=== PATIENT | male | born 1980 | race Two or more races ===

== ENCOUNTER 2019-02-27 22:25 | Inpatient (IN) | payer BC, MEDICARE ==
[~2019-02-27] VITALS: Ht 172.7 cm; Wt 115.2 kg
[2019-02-27] MEDS ORDERED: ADDE10 PO (22:47)
[2019-02-27] MEDS ORDERED: PREG75 PO (22:47)
[2019-02-27] MEDS ORDERED: ALPR0.5T8 PO (22:47)
[2019-02-27] MEDS ORDERED: BUSP10TA23 PO (22:47)
[2019-02-27] MEDS ORDERED: BUPR-93 PO (22:48)
[2019-02-27 22:53] LABS: BASOPHILS % (AUTO) 0.8 % (0.0-2.0); EOSINOPHILS % (AUTO) 1.7 % (1.0-6.0); HEMATOCRIT 46.2 % (41-53); HEMOGLOBIN 15.5 g/dL (13.5-17.5); LYMPHOCYTES # (AUTO) 2.3 K/uL (1.0-4.8); LYMPHOCYTES % (AUTO) 23.7 % (22.0-44.0); MEAN CORPUSCULAR HEMOGLOBIN 32.8 pg (26.0-34.0); MEAN CORPUSCULAR HGB CONC 33.5 G/dL (31.0-37.0); MEAN CORPUSCULAR VOLUME 98 fL (80-100); MONOCYTES # (AUTO) 0.7 K/uL (0.1-1.0); MONOCYTES % (AUTO) 7.1 % (2.0-9.0); NEUTROPHILS # (AUTO) 6.5 K/uL (1.8-7.7); NEUTROPHILS % (AUTO) 66.7 % (40.0-70.0); PLATELET COUNT (AUTO) 341 K/uL (150-450); RED BLOOD CELL COUNT(AUTO) 4.73 MIL/uL (4.50-5.90)
[2019-02-27 23:02] LABS: ANION GAP 12 mmol/L (8-16); CALCIUM, TOTAL 8.5 mg/dL (8.8-10.5); CARBON DIOXIDE 28 mmol/L (22-29); CHLORIDE 108 mmol/L (98-107); CREATININE 1.09 mg/dL (0.60-1.30); GLOMERULAR FILTR. RATE CALC > 60 mL/min (>60); GLUCOSE,RANDOM 94 mg/dL (70-110); POTASSIUM 4.2 mmol/L (3.5-5.1); SODIUM SERUM 148 mmol/L (136-145); UREA NITROGEN, BLOOD 23 mg/dL (7-18)
[2019-02-27 23:09] LABS: ALANINE AMINOTRANSFERASE 59 U/L (12-78); ALBUMIN 3.6 g/dL (3.4-5.0); ALKALINE PHOSPHATASE 109 U/L (46-116); ASPARTATE AMINOTRANSFERASE 51 U/L (15-37); BILIRUBIN,TOTAL 0.4 mg/dL (0.1-1.0); TOTAL PROTEIN, SERUM 7.1 g/dL (6.4-8.2)
[2019-02-27 23:11] LABS: ACETAMINOPHEN < 2 mcg/mL (10-30); SALICYLATE < 2.8 mg/dL (2.8-20.0)
[2019-02-28] MEDS ORDERED: HALOPERIDOL 5 MG TABLET PO PRN (00:15)
[2019-02-28] MEDS: ZOLPIDEM TARTRATE 10 MG TABLET PO PRN ×2 (01:10→22:34)
[2019-02-28 01:48] VITALS: BP 127/69
[2019-02-28 09:58] VITALS: BP 144/75
[2019-02-28] MEDS: LORazepam 2 MG TABLET PO PRN (15:46)
[2019-02-28 16:48] VITALS: BP 124/79
[2019-03-01] MEDS: BuPROPion HCL XL 150 MG ER TABLET PO SCH (08:56)
[2019-03-01] MEDS ORDERED: VENLAFAXINE HCL 75 MG ER CAPSULE PO SCH (09:00)
[2019-03-01 10:05] VITALS: BP 125/78
[2019-03-01] MEDS: LORazepam 2 MG TABLET PO PRN (14:09)
[2019-03-01 21:16] VITALS: BP 127/71
[2019-03-01] MEDS: ZOLPIDEM TARTRATE 10 MG TABLET PO PRN (23:42)
[2019-03-02] VITALS: BP 133/90
[2019-03-02] MEDS: VENLAFAXINE HCL 150 MG ER CAPSULE PO SCH (09:09)
[2019-03-02] MEDS: BuPROPion HCL XL 150 MG ER TABLET PO SCH (09:09)
[2019-03-02 09:25] VITALS: BP 114/77
[2019-03-02 16:00] VITALS: BP 127/74
[2019-03-02] MEDS: LORazepam 2 MG TABLET PO PRN (16:09)
[2019-03-02] MEDS: ZOLPIDEM TARTRATE 10 MG TABLET PO PRN (20:40)
[2019-03-03 07:05] LABS: ANION GAP 10 mmol/L (8-16); CALCIUM, TOTAL 8.9 mg/dL (8.8-10.5); CARBON DIOXIDE 26 mmol/L (22-29); CHLORIDE 105 mmol/L (98-107); CREATININE 1.12 mg/dL (0.60-1.30); GLOMERULAR FILTR. RATE CALC > 60 mL/min (>60); GLUCOSE,RANDOM 99 mg/dL (70-110); SODIUM SERUM 141 mmol/L (136-145); UREA NITROGEN, BLOOD 14 mg/dL (7-18)
[2019-03-03 08:00] VITALS: BP 110/72
[2019-03-03] MEDS: VENLAFAXINE HCL 150 MG ER CAPSULE PO SCH (08:47)
[2019-03-03] MEDS: BuPROPion HCL XL 150 MG ER TABLET PO SCH (08:47)
[2019-03-03] MEDS: LORazepam 2 MG TABLET PO PRN (09:16)
[2019-03-03] MEDS ORDERED: VENL-68 PO (11:23)
== END 2019-03-03 15:40 | disposition home or self-care (01) | DRG 885 ==
LOC: EMS 22:26 → 3EI 02-28 00:30
PROVIDERS: ADMIT Psychiatry & Neurology Psychiatry; ATTEND Psychiatry & Neurology Psychiatry
DX: F33.2 Major depressive disorder, recurrent severe without psychotic features (principal); R45.851 Suicidal ideations; E87.0 Hyperosmolality and hypernatremia; F41.9 Anxiety disorder, unspecified; G44.209 Tension-type headache, unspecified, not intractable; Z85.038 Personal history of other malignant neoplasm of large intestine; Z91.5 Personal history of self-harm; R74.0 Nonspecific elevation of levels of transaminase and lactic acid dehydrogenase [LDH]
CPT/HCPCS: 93005; G0480; G0481